=== PATIENT | female | born 1980 | race Hispanic/Latino ===

== ENCOUNTER → 2019-11-20 | Outpatient (CLI) | payer BC | END | disposition home or self-care (01) | LOC: OIH 16:37 | PROVIDERS: ATTEND Internal Medicine | DX: M79.89 Other specified soft tissue disorders (principal) | CPT/HCPCS: 73630 ==

== ENCOUNTER → 2023-06-19 | Outpatient (CLI) | payer BC | END | disposition home or self-care (01) | LOC: RAH 14:31 | PROVIDERS: ATTEND Otolaryngology Plastic Surgery within the Head & Neck | DX: J34.2 Deviated nasal septum (principal); J32.8 Other chronic sinusitis; J33.8 Other polyp of sinus | CPT/HCPCS: 70486 ==